=== PATIENT | female | born 1995 | race Caucasian/White ===

== ENCOUNTER 2017-02-15 18:47 | Outpatient (CLI) | payer OTHER ==
[~2017-02-15] VITALS: Ht 160 cm; Wt 101.0 kg
[2017-02-15 19:06] VITALS: BP 129/76; PULSE 85; RESP 19; Ht 160 cm; Wt 101.0 kg
[2017-02-15] MEDS ORDERED: ACETAMINOPHEN 500 MG TAB PO STA (20:46)
[2017-02-15 20:57] LABS: ADD UMIC YES; UR ASCORBIC ACID 20 mg/dL (NEGATIVE); UR BACTERIA FEW /HPF (NONE SEEN); UR BILIRUBIN (Dip) NEGATIVE (NEGATIVE); UR BLOOD (Dip) NEGATIVE (NEGATIVE); UR CLARITY CLOUDY (CLEAR); UR COLOR YELLOW (YELLOW); UR GLUCOSE (Dip) NEGATIVE (NEGATIVE); UR KETONES (Dip) TRACE mg/dL (NEGATIVE); UR LEUKOCYTE ESTERASE (Dip) 2+ Leu/ul (NEGATIVE); UR MUCUS FEW /HPF (NONE SEEN); UR NITRITE (Dip) NEGATIVE (NEGATIVE); UR RBC 3 /HPF (0-5); UR SPECIFIC GRAVITY (Dip) 1.033 (1.003-1.030); UR SQUAMOUS EPITHELIAL CELL MANY /HPF (FEW); UR TOTAL PROTEIN (Dip) 1+ mg/dl (NEGATIVE); UR UROBILINOGEN (Dip) NEGATIVE (NEGATIVE)
--- NOTE | 2017-02-15 22:19 | RADRPT ---
PROCEDURE: Biophysical profile. CLINICAL INDICATION: Pelvic pain. TECHNIQUE: Multiple sonographic images of the pelvis were obtained with transabdominal technique. COMPARISON: No prior studies are available for comparison. FINDINGS: There is a single living intrauterine gestation with the fetus in a vertex position. The placenta i s left lateral in location, grade II. heart tones of 131 beats per minute are identified. The re is normal amniotic fluid volume with an ANTONIO of 10.5 cm. breathing movements = 2 Gross body movements = 2 tone = 2 Qualitative AFV = 2 IMPRESSION: Biophysical profile 8 out of 8. .Alpesh Mora MD, MD Date Time Electronically viewed and signed by .Alpesh Mora MD, MD on 02/15/2017 22:18 .T/
--- NOTE | 2017-02-16 06:25 | TRIAGE ---
OB Triage Datetime Report Generated by CPN: 02/15/2017 23:16 Datetime: 02/15/2017 22:53 Labor Evaluation Frequency: X4 Monitor Mode: External Duration (sec)2399: 50-100 Quality: Mild Pattern: Normal: <= 5 Contractions in 10 Minutes Resting Tone [place]: Relaxed Heart Rate FHR Baseline Rate: 120 Monitor Mode: External US Variability: Moderate 6-25 bpm Accelerations: 15X15 Decelerations: None Category: Category I Pain Presence: None/Denies Datetime: 02/15/2017 22:48 Vaginal Exam Dilatation (cms): 2.0 Effacement (%): 70 Station: -2 Exam By: BE Vaginal Bleeding: None Cervix, Consistency: Soft Cervix, Position: Midposition Presentation 'A': Cephalic Datetime: 02/15/2017 22:00 Labor Evaluation Frequency: X2 Monitor Mode: External Duration (sec)2399: 60 Quality: Mild Pattern: Normal: <= 5 Contractions in 10 Minutes Resting Tone [place]: Relaxed Heart Rate FHR Baseline Rate: 120 Monitor Mode: External US FHR Baseline Changes: No Baseline Change Variability: Moderate 6-25 bpm Accelerations: 15X15 Decelerations: None Category: Category I Datetime: 02/15/2017 21:00 Labor Evaluation Frequency: X4 Monitor Mode: External Duration (sec)2399: 40-60 Quality: Mild Pattern: Normal: <= 5 Contractions in 10 Minutes Resting Tone [place]: Relaxed Heart Rate FHR Baseline Rate: 120 Monitor Mode: External US Variability: Moderate 6-25 bpm Accelerations: 15X15 Decelerations: None Category: Category I Pain Presence: None/Denies Pain Assessment Comments: PATIENT STATES THE PAIN IS ONLY WHEN SHE STANDS AND WALKS Datetime: 02/15/2017 20:04 Vaginal Exam Dilatation (cms): 2.0 Effacement (%): 70 Station: -2 Exam By: be Vaginal Bleeding: None Cervix, Consistency: Soft Cervix, Position: Posterior Presentation 'A': Cephalic Datetime: 02/15/2017 20:00 Labor Evaluation Frequency: X4 Monitor Mode: External Duration (sec)2399: 60-80 Quality: Mild Pattern: Normal: <= 5 Contractions in 10 Minutes Resting Tone [place]: Relaxed Heart Rate FHR Baseline Rate: 120 Monitor Mode: External US Variability: Moderate 6-25 bpm Accelerations: 15X15 Decelerations: None Category: Category I Datetime: 02/15/2017 19:09 EGA: 37.1 Datetime: 02/15/2017 19:07 Maternal Assessment Level of Consciousness: Fully Conscious DTR's/Clonus: DTRs 1+ Headache: Denies Blurred Vision: No Respiratory Effort: Unlabored Breath Sounds, Left: Clear and Equal Breath Sounds, Right: Clear and Equal Nausea/Vomiting: Denies RUQ Epigastric Pain: Denies Facial Edema: None Monitor Mode: External Pattern: Normal: <= 5 Contractions in 10 Minutes Heart Rate FHR Baseline Rate: 125 Monitor Mode: External US Variability: Moderate 6-25 bpm Accelerations: 15X15 Decelerations: None Category: Category I Pain Assessment Pain Scale: 6 Pain Presence: Constant Pain Type: Sharp Pain Goal: 3 Pain Assessment Comments: THIGH PAIN Membrane Status: Intact Datetime: 02/15/2017 19:00 Stage of : OB Triage Assessment Type: Triage Maternal Assessment Level of Consciousness: Fully Conscious DTR's/Clonus: DTRs 2+; No Clonus Headache: Denies Blurred Vision: No Respiratory Effort: Unlabored; Regular Rhythm; Equal Expansion Breath Sounds, Left: Clear and Equal Breath Sounds, Right: Clear and Equal Nausea/Vomiting: Denies RUQ Epigastric Pain: Denies Lower Extremities Edema: None Degree: None Upper Extremities Edema: None Degree: None Facial Edema: None Fall Risk Assessment History of Falling: (0) No Secondary Diagnosis: (0) No Ambulatory Aid: (0) Bedrest/Nurse Assist IV Therapy: (0) No Gait: (0) Normal/Bedrest/Immobile Mental Status: (0) Oriented to Own Ability Fall Score: 0 Fall Risk Score Definition: No Risk: No action required Pain Assessment Pain Scale: 8 (Annotations: WHEN PATIENT WALKS AND STANDS) Pain Presence: Constant Datetime: 02/15/2017 18:44 Time of Arrival: 02/15/2017 18:44 Arrived By: Ambulatory Arrived From: Home Chief Complaint: PT CAME IN C/O LOWER ABD PAIN AND INNER THIGH PAIN. STATES FEEL + MOVEMENT AND DENIES ANY BLEEDING OR ANY OTHER PROBLEM AT THIS TIME Movement: Present Contractions: Denies/Absent Rupture of Membranes: Denies Vaginal Discharge: Denies Recent Sexual Intercouse: Denies Abdominal Trauma: Not Applicable Time Provider Notified: 02/15/2017 20:10 Provider Notified: ERIK Initial Plan: MONITOR
--- NOTE | 2017-02-16 07:06 | PN ---
Triage Information Date/Time Reason for visit: lower abdominal and left inguinal region pain Weeks of Gestation 37+1 /Para 3/2 Diabetes: none Hypertention: none Additional information States pain bothers her with standing and walking x2 weeks. Has not tried any remedy at home. Reports normal FM, denies LOF, VB, UCs or dysuria. Objective Vital Signs Date Time Temp Pulse Resp B/P Pulse Ox O2 Delivery O2 Flow Rate FiO2 02/15/17 19:06 98.2 85 19 129/76 99 Room Air Heart Rate Comments baseline 110s, mod jane, +accels, no decels Contractions: 6-10 Minutes Apart Exam BLE symmetric, nontender, no calf TTP. Very mild TTP in L inguinal region. No palpable lymph nodes or hernia. No overlying erythema, no edema, no lesions overlying area. Normal sensation to touch. Able to adduct and abduct LLE. Able to ambulate SVE 270/-2 Results/Medications Results 24 hrs Laboratory Tests Test 02/15/17 20:20 Urine Color YELLOW Urine Clarity CLOUDY A Urine pH 5.0 Urine Specific [place] 1.033 H Urine Ketones TRACE A Urine Nitrite NEGATIVE Urine Bilirubin NEGATIVE Urine Urobilinogen NEGATIVE Urine Leukocyte Esterase 2+ H Urine Microscopic RBC 3 Urine Microscopic WBC 10 H Urine Squamous Epithelial Cells MANY A Urine Bacteria FEW A Urine Mucus FEW A Urine Hemoglobin NEGATIVE Urine Glucose NEGATIVE Urine Total Protein 1+ H Imaging Results PROCEDURE: Biophysical profile. CLINICAL INDICATION: Pelvic pain. TECHNIQUE: Multiple sonographic images of the pelvis were obtained with transabdominal technique. COMPARISON: No prior studies are available for comparison. FINDINGS: There is a single living intrauterine gestation with the fetus in a vertex position. The placenta is left lateral in location, grade II. heart tones of 131 beats per minute are identified. There is normal amniotic fluid volume with an ANTONIO of 10.5 cm. breathing movements = 2 Gross body movements = 2 tone = 2 Qualitative AFV = 2 IMPRESSION: Biophysical profile 8 out of 8. Disposition: Discharge Assessment/Plan Pt d/w Dr. Wilks by sales service coordinator and deemed appropriate for d/c home. Likely musculoskeletal etiology of pain. Recommend warm compress and Tylenol prn. Return to triage if pain does not improve and/or worsens. FWB reassuring. Reactive NST, BPP 02/03 No e/o labor FKC, Labor and ROM precautions reviewed. VIVI DENTON MD Feb 16, 2017 07:06
== END 2017-02-15 23:02 | disposition home or self-care (01) ==
LOC: OBT 18:47 → L-D 18:48 → OBT 23:02
PROVIDERS: ATTEND Obstetrics & Gynecology
DX: O26.893 Other specified pregnancy related conditions, third trimester (principal); Z3A.37 37 weeks gestation of pregnancy; R10.9 Unspecified abdominal pain
CPT/HCPCS: 76818; 81001; Z7500; Z7610; G0463

== ENCOUNTER 2017-03-01 14:14 | Inpatient (IN) | payer OTHER ==
[2017-03-01 14:33] VITALS: BP 123/73; PULSE 86; RESP 20
[2017-03-01] MEDS ORDERED: PRENAT PO (14:36)
--- NOTE | 2017-03-01 14:54 | TRIAGE ---
OB Triage Datetime Report Generated by CPN: 03/01/2017 14:54 Datetime: 03/01/2017 14:37 Vaginal Exam Dilatation (cms): 3.4 Effacement (%): 90 Station: -1 Exam By: [facility] Vaginal Bleeding: None Cervix, Position: Midposition Presentation 'A': Cephalic Datetime: 03/01/2017 14:26 Assessment Type: Triage Maternal Assessment Level of Consciousness: Fully Conscious DTR's/Clonus: DTRs 2+; No Clonus Headache: Denies Blurred Vision: No Respiratory Effort: Unlabored; Regular Rhythm; Equal Expansion Breath Sounds, Left: Clear and Equal Breath Sounds, Right: Clear and Equal Nausea/Vomiting: Denies RUQ Epigastric Pain: Denies Facial Edema: None Fall Risk Assessment History of Falling: (0) No Secondary Diagnosis: (0) No Ambulatory Aid: (0) Bedrest/Nurse Assist IV Therapy: (0) No Gait: (0) Normal/Bedrest/Immobile Mental Status: (0) Oriented to Own Ability Fall Score: 0 Fall Risk Score Definition: No Risk: No action required Datetime: 02/15/2017 19:09 Time of Arrival: 03/01/2017 14:10 EGA: 39.1 Arrived By: Ambulatory Arrived From: Home Chief Complaint: rom at 10 am Movement: Present Contractions: Irregular Rupture of Membranes: Ruptured Vaginal Bleeding: Scant Recent Sexual Intercouse: Denies Abdominal Trauma: Not Applicable Patient Complaints: Contractions; Other Time Provider Notified: 03/01/2017 14:53 Provider Notified: delshad Datetime: 02/15/2017 19:00 Fall Score: 0 Fall Risk Score Definition: No Risk: No action required
[2017-03-01] MEDS ORDERED: CARBOPROST 250 MCG INJ IM PRN ×2 (15:30→19:30)
[2017-03-01] MEDS ORDERED: MISOPROSTOL 200 MCG TAB PR PRN ×2 (15:30→19:30)
[2017-03-01] MEDS ORDERED: METHYLERGONOVINE 0.2 MG INJ IM PRN ×2 (15:30→19:30)
[2017-03-01] MEDS ORDERED: LACTATED RINGER'S 1,000 ML IV PRN (15:30)
[2017-03-01] MEDS ORDERED: LIDOCAINE 1% (MPF) 30 ML INJ INJ PRN (15:30)
[2017-03-01] MEDS ORDERED: OXYTOCIN 30 UNITS/LR 500 ML IV PRN ×2 (15:30→19:30)
[2017-03-01] MEDS ORDERED: IBUPROFEN 600 MG TAB PO PRN (15:30)
[2017-03-01] MEDS ORDERED: OXYTOCIN 30 UNITS/LR 500 ML IV SCH ×3 (15:30→19:30)
[2017-03-01] MEDS ORDERED: BUTORPHANOL 2 MG INJ IV PRN (15:30)
[2017-03-01 15:42] LABS: BASOPHILS % 0.3 % (0.0-2.0); EOSINOPHILS # 0.1 10^3/ul (0.0-0.5); EOSINOPHILS % 0.7 % (0.0-7.0); HEMATOCRIT 32.8 % (37.0-47.0); HEMOGLOBIN 10.9 g/dl (12.0-16.0); LYMPHOCYTES # 3.4 10^3/ul (0.8-2.9); LYMPHOCYTES % 30.1 % (15.0-51.0); MEAN CORPUSCULAR HEMOGLOBIN 27.3 pg (29.0-33.0); MEAN CORPUSCULAR HGB CONC 33.2 g/dl (32.0-37.0); MEAN PLATELET VOLUME 11.2 fl (7.4-10.4); MONOCYTE # 1.1 10^3/ul (0.3-0.9); MONOCYTES % 10.2 % (0.0-11.0); NEUTROPHILS % 58.3 % (39.0-77.0); PLATELET COUNT 291 10^3/UL (140-415); RED CELL DISTRIBUTION WIDTH 16.1 % (11.5-14.5); WHITE BLOOD COUNT 11.2 10^3/ul (4.8-10.8)
[2017-03-01 16:20] LABS: INR 0.84; PROTIME 11.5 Sec (12.2-14.2); PT RATIO 0.9
[2017-03-01 16:21] LABS: PARTIAL THROMBOPLASTIN TIME 25.2 Sec (25.0-35.0)
--- NOTE | 2017-03-01 16:42 | RADRPT ---
PROCEDURE: US OB. CLINICAL INDICATION: Labor. TECHNIQUE: Multiple sonographic images of the pelvis were obtained. Transabdominal imaging only w as performed. The images were reviewed on a PACS workstation. COMPARISON: No prior studies are available for comparison. FINDINGS: There is a single living intrauterine gestation in cephalic position. There is an posterior placenta. There is no evidence of previa. Adequate amnionic fluid is demonstrated. The amniotic fluid index is 8.0 cm. Active cardiac motion is seen in a four-chambered heart at 132 beats per minute. The biparietal diameter is 9.5 cm. The head circumference is 33.74 cm. The abdominal circumference is 33.13 cm. The femur length is 7.3 cm . Consistent with: A 23-oxmn-9-day gestation. Estimated weight is 3228 plus or minus 484 g. IMPRESSION: 1. Single living intrauterine gestation in cephalic position with a mean gestational age by ultraso und of 38 weeks 0 days plus or minus 19 days with estimated date of delivery of 03/15/2017 by ultras ound criteria. RPTAT: [facility] Physician Ratna Date Time Electronically viewed and signed by Physician Ratna on 03/01/2017 16:42 /
[2017-03-01] MEDS: LACTATED RINGER'S 1,000 ML IV SCH ×2 (17:56→18:52)
[2017-03-01] MEDS ORDERED: LACTATED RINGER'S 1,000 ML IV* SCH (19:08)
--- NOTE | 2017-03-01 19:08 | LDN ---
Date/Time of Note Date/Time of Note DATE: 03/01/17 TIME: 18:59 Delivery Summary Pt pushed without anesthesia to an of a liveborn 3505g female with Apgars of 9 and 9 at 1 and 5 min respectively. Easy delivery of the head from SHARMIN position. A loose nuchal cord x1 was reduced followed by delivery of the anterior shoulder, posterior shoulder and the remainder of the body. vigorous at delivery. Cord clamping was delayed x30 seconds and the infant was bulb suctioned. Standard IV Pitocin was administered. The cord was then doubly clamped and cut by FOB. Cord blood was collected. An intact 3VC placenta then spontaneously delivered shortly thereafter. Fundal massage revealed a firm fundus. Inspection of the vagina and perineum revealed a small second degree laceration which was repaired with local anesthetic using 3-0 Vicryl suture. Brisk vaginal bleeding was noted and with fundal massage, additional bleeding was seen. A bimanual exam was notable for clots in the MARVIN which were removed however bleeding continued. Pt received Methergine 200mcg IM x1 and bimanual massage was employed with minimal effect. Ring forceps were then used to examine the cervix and a posterior cervical laceration was noted. Given the patient's extreme discomfort, an epidural was placed for repair of the cervical laceration. The cervix was repaired using 0-Chromic suture in a continuous fashion. Appropriate hemostasis was then noted. EBL 400ml. Rectal exam performed at the end of the procedure revealed intact rectal mucosa without defects and no suture palpated in the rectum. Placenta Delivered: Spontaneously Meconium: none Perineal laceration: 2 Anesthesia type: Local (for perineal repair, epidural for cervical laceration repair) Estimated blood loss: 400 Sponge & Needle done & correct: Yes Any foreign bodies felt in the: No Problems: Delivery Information Sex Sex: female Apgars 1 Minute: 9 5 Minute: 9 Suctioning Nose & mouth suctioned at nhung: No (suctioned after delivery of the infant) Delee suction performed: No Umbilical Cord Umbilical cord with: 3 Vessels Cord presentations: nuchal cord Nuchal cord present X: 1 Cord Blood was obtained: Yes Mother & Baby Disposition Disposition Mom & Baby to Maternity; Good: Yes VIVI DENTON MD Mar 01, 2017 19:08
[2017-03-01] MEDS ORDERED: FENTAnyl 2MCG/ML-ROPIV 0.2% 100 ML ONE (19:18)
[2017-03-01] MEDS ORDERED: SENNA/DOCUSATE NA (8.6MG/50MG) TAB PO PRN (19:30)
[2017-03-01] MEDS ORDERED: DIPHENHYDRAMINE 50 MG INJ IV PRN (19:30)
[2017-03-01] MEDS ORDERED: ONDANSETRON 4 MG INJ IV PRN (19:30)
[2017-03-01] MEDS ORDERED: DIBUCAINE 1% 30 GM OINT PR PRN (19:30)
[2017-03-01] MEDS ORDERED: BENZOCAINE 20% 56 ML SPRAY TOP PRN (19:30)
[2017-03-01] MEDS ORDERED: LANOLIN 7 GM TUBE TOP PRN (19:30)
[2017-03-01] MEDS ORDERED: ACETAMINOPHEN 325 MG TAB PO PRN (19:30)
[2017-03-01 22:35] VITALS: BP 138/79; PULSE 66; RESP 19
[2017-03-01] MEDS ORDERED: NALOXONE (0.4 MG/ML) INJ IV PRN (23:00)
[2017-03-01] MEDS ORDERED: FENTAnyl 2MCG/ML-ROPIV 0.2% 100 ML BAG EPI SCH (23:00)
[2017-03-02] MEDS: IBUPROFEN 600 MG TAB PO SCH ×5 (00:59→23:34)
[2017-03-02 04:15] VITALS: BP 132/74; PULSE 83; RESP 19
[2017-03-02 07:51] LABS: BASOPHILS % 0.2 % (0.0-2.0); EOSINOPHILS # 0.1 10^3/ul (0.0-0.5); EOSINOPHILS % 0.5 % (0.0-7.0); HEMATOCRIT 26.7 % (37.0-47.0); HEMOGLOBIN 8.6 g/dl (12.0-16.0); LYMPHOCYTES # 3.3 10^3/ul (0.8-2.9); MEAN CORPUSCULAR HEMOGLOBIN 26.5 pg (29.0-33.0); MEAN CORPUSCULAR HGB CONC 32.2 g/dl (32.0-37.0); MEAN CORPUSCULAR VOLUME 82.4 fl (82.0-101.0); MEAN PLATELET VOLUME 11.7 fl (7.4-10.4); MONOCYTE # 1.1 10^3/ul (0.3-0.9); MONOCYTES % 9.5 % (0.0-11.0); NEUTROPHILS % 61.4 % (39.0-77.0); PLATELET COUNT 222 10^3/UL (140-415); RED BLOOD COUNT 3.24 10^6/ul (4.20-5.40); WHITE BLOOD COUNT 11.7 10^3/ul (4.8-10.8)
[2017-03-02 08:00] VITALS: BP 127/71; PULSE 83; RESP 16
[2017-03-02 12:00] VITALS: BP 125/79; PULSE 82; RESP 18
[2017-03-02 16:00] VITALS: BP 126/75; PULSE 78; RESP 16
--- NOTE | 2017-03-02 18:39 | HP ---
Date/Time of Note Date/Time of Note DATE: 03/02/17 TIME: 18:35 OB - History Hx of Present Chief Complaint: contractions Estimated Due Date: Mar 07, 2017 : 3 Para: 2 Spontaneous : 0 Therapeutic : 0 Care: Limited Care Obstetrical Complications: None Medical Complications: None Past Family/Social History * Past Medical, Surgical, Family and Obstetric Histories reviewed from chart. GBS Status: Negative OB Admission Exam Vital Signs Vital Signs Vital Signs Date Time Temp Pulse Resp B/P Pulse Ox O2 Delivery O2 Flow Rate FiO2 03/02/17 16:00 98.1 78 16 126/75 Room Air Physical Exam HEENT: WNL Heart: Rhythm Normal Lungs: Clear, Equal Abdomen: WNL Extremities: Normal Reflexes: Normal Cervical Dilatation: 4cm Effacement: 100% Station: -1 Membranes: Ruptured Amniotic Fluid: Clear Heart Rate: 120's Accelerations: Accelerations Present Decelerations: No Decelerations Varibility: Moderate Last 72 hours Lab Results CBC & BMP 03/01/17 15:15 03/02/17 07:01 OB Assessment/Plan Reason for admission: active labor Plan: Expectant Management RENEE VALENCIA MD Mar 02, 2017 18:39
--- NOTE | 2017-03-02 18:41 | QN ---
Documentation Comment No complaint Afebrile VSS Fundus Firm Lochia scant PPD #1 Stable Routine pp care. RENEE VALENCIA MD Mar 02, 2017 18:41
[2017-03-02 19:40] VITALS: BP 127/82; PULSE 82; RESP 19
[2017-03-02] MEDS: FERROUS SULFATE (EC) 325 MG TAB PO SCH (21:49)
[2017-03-03 05:05] VITALS: BP 121/67; PULSE 79; RESP 19
[2017-03-03] MEDS: IBUPROFEN 600 MG TAB PO SCH ×2 (05:40→12:18)
[2017-03-03 08:00] VITALS: BP 112/63; PULSE 76; RESP 16
[2017-03-03] MEDS ORDERED: DIPHTH/TET/ACEL PERTUSS (ADULT) 0.5 ML VIAL IM* ONE (09:00)
[2017-03-03] MEDS: FERROUS SULFATE (EC) 325 MG TAB PO SCH ×2 (09:43→12:18)
--- NOTE | 2017-03-03 12:25 | DS ---
Date/Time of Note Date/Time of Note DATE: 03/03/17 TIME: 12:25 Obstetrical Discharge Record Final Diagnosis Final Diagnosis: Term delivered Vaginal Delivery Obstetrical Delivery: Spontaneous Condition on Discharge Physical Assessment Voiding: Yes Bowel Movement: Yes Breast: Soft, non-tender Fundus: Firm Calf Tenderness: No Patient Condition: Stable RENEE VALENCIA MD Mar 03, 2017 12:25
== END 2017-03-03 16:01 | disposition home or self-care (01) | DRG 775 ==
LOC: OBT 14:14 → L-D 14:16 → OBT 14:50 → L-D 14:50 → PP1 22:23
PROVIDERS: ADMIT Obstetrics & Gynecology; ATTEND Obstetrics & Gynecology
PROC: 0UQC7ZZ Repair Cervix, Via Natural or Artificial Opening (ICD-10-PCS; principal; 2017-03-01)
PROC: 10E0XZZ Delivery of Products of Conception, External Approach (ICD-10-PCS; 2017-03-01)
DX: O71.3 Obstetric laceration of cervix (principal); Z37.0 Single live birth; O69.81X0 Labor and delivery complicated by cord around neck, without compression, not applicable or unspecified; Z3A.39 39 weeks gestation of pregnancy
CPT/HCPCS: 62319; 76815; 85025; 85610; 85730; 86592; 86900; 86901; 87340; 90715; A4310; G0463; J0595; J2210; J2590; J3010; J7120

== ENCOUNTER 2017-03-12 20:25 | Emergency (ER) | payer OTHER ==
[~2017-03-12] VITALS: Ht 160 cm; Wt 93.0 kg
[~2017-03-12 20:25] MED LIST: PRENAT PO
[2017-03-12 20:29] VITALS: Ht 160 cm; Wt 93.0 kg
[2017-03-12 21:02] LABS: URINE BLOOD (Dip) POC 2+ (NEGATIVE)
[2017-03-12] MEDS ORDERED: SOD CHLORIDE 0.9% 1,000 ML IV STA (21:20)
--- NOTE | 2017-03-12 21:22 | ERD ---
ER Documentation Chief Complaint Date/Time DATE: 03/12/17 TIME: 21:22 Chief Complaint fever x 1 week; denies body pains HPI 22-year-old female status post term vaginal delivery 03/01/17 ambulatory to the ED for evaluation of fever. Several days ago had a subjective fever which resolved after 1 day but recurred today. She is otherwise completely asymptomatic. Denies URI symptoms, rhinorrhea or odynophagia. No headache or neck pain. No shortness of breath or cough. Denies abdominal pain, nausea, vomiting, diarrhea or constipation. No dysuria, polyuria, hematuria or flank pain. No leg pain or swelling. No skin rash. No ill contacts or recent travel. ROS All systems reviewed and are negative except as per history of present illness. Medications Home Meds Active Scripts Ciprofloxacin Hcl* (Ciprofloxacin Hcl*) 500 Mg Tablet, 500 MG PO BID for 7 Days , TAB Prov:SO KARIMI MD 03/12/17 Reported Medications Multivit/Min/Fol Ac/Iron/Pren* ( S*) 1 Tab Tab, 1 TAB PO DAILY, TAB 03/01/17 Allergies Allergies: Coded Allergies: No Known Allergies (Verified Allergy, Unknown, 03/01/17) No Known Drug Allergies (Verified Allergy, Unknown, 02/15/17) PMhx/Soc History of Surgery: No Anesthesia Reaction: No Hx Neurological Disorder: No Hx Respiratory Disorders: No Hx Cardiac Disorders: No Hx Psychiatric Problems: No Hx Miscellaneous Medical Probl: No Hx Alcohol Use: No Hx Substance Use: No Hx Tobacco Use: No FmHx No stroke or cancer Physical Exam Vitals Vital Signs Date Time Temp Pulse Resp B/P Pulse Ox O2 Delivery O2 Flow Rate FiO2 03/13/17 00:00 99.4 94 18 103/64 97 Room Air 03/12/17 22:40 102.2 03/12/17 21:10 104.2 122 22 108/62 97 Room Air 03/12/17 20:29 105.5 150 25 151/80 100 Physical Exam Const: Alert, NAD Head: Atraumatic Eyes: Normal Conjunctiva ENT: Normal External Ears, Nose and Mouth. Pharynx clear. No erythema or exudate. Neck: Full range of motion. No adenopathy or tenderness. No meningismus. Resp: Clear to auscultation bilaterally Cardio: Tachycardic. Regular rate and rhythm, no murmurs Abd: Soft, non tender, non distended. Normal bowel sounds. No rebound or guarding. Pelvid deferred as per patient. Skin: No petechiae or rashes Back: No midline or flank tenderness Ext: No cyanosis, or edema Neur: Awake and alert Psych: Normal Mood and Affect Result Diagram: 03/12/17210903/12/172109 Results 24 hrs Laboratory Tests Test 03/12/17 21:05 03/12/17 21:09 03/12/17 21:10 Urine Color YELLOW Urine Clarity SLIGHTLY CLOUDY Urine pH 5.0 Urine Specific [place] 1.015 Urine Ketones NEGATIVEmg/dL Urine Nitrite NEGATIVEmg/dL Urine Bilirubin NEGATIVEmg/dL Urine Urobilinogen NEGATIVEmg/dL Urine Leukocyte Esterase 2+Yareli/ul Urine Microscopic RBC 6/HPF Urine Microscopic WBC 30/HPF Urine Hemoglobin 3+mg/dL Urine Glucose NEGATIVEmg/dL Urine Total Protein 1+mg/dl Bedside Urine pH (LAB) 5.5 Bedside Urine Protein (LAB) 1+ Bedside Urine Glucose (UA) Negative Bedside Urine Ketones (LAB) Negative Bedside Urine Blood 2+ Bedside Urine Nitrite (LAB) Negative Bedside Urine Leukocyte Esterase (L 1+ White Blood Count 12.010^3/ul Red Blood Count 4.0310^6/ul Hemoglobin 10.7g/dl Hematocrit 33.6% Mean Corpuscular Volume 83.4fl Mean Corpuscular Hemoglobin 26.6pg Mean Corpuscular Hemoglobin Concent 31.8g/dl Red Cell Distribution Width 16.5% Platelet Count 51021^3/UL Mean Platelet Volume 9.9fl Neutrophils % 79.9% Lymphocytes % 13.2% Monocytes % 5.2% Eosinophils % 0.5% Basophils % 0.3% Nucleated Red Blood Cells % 0.0/100WBC Neutrophils # 9.610^3/ul Lymphocytes # 1.610^3/ul Monocytes # 0.610^3/ul Eosinophils # 0.110^3/ul Basophils # 0.010^3/ul Nucleated Red Blood Cells # 0.010^3/ul Sodium Level 138mmol/L Potassium Level 3.7mmol/L Chloride Level 105mmol/L Carbon Dioxide Level 24mmol/L Anion Gap 13 Blood Urea Nitrogen 11mg/dl Creatinine 1.00mg/dl Glucose Level 92mg/dl Calcium Level 9.7mg/dl Current Medications Medications (Trade) Dose Ordered Sig/Ari Route PRN Reason Start Time Stop Time Status Last Admin Dose Admin Sodium Chloride (NS) 1,000 ml @ 1,000 mls/hr Q1H STAT IV 03/12/17 21:20 03/12/17 22:19 DC 03/12/17 21:34 Ibuprofen 600 mg 600 mg ONCE ONCE PO 03/12/17 21:30 03/12/17 21:31 DC 03/12/17 21:33 Ceftriaxone Sodium (Rocephin) 50 ml @ 100 mls/hr ONCE ONCE IVPB 03/12/17 23:00 03/12/17 23:29 DC 03/12/17 22:54 Procedures/MDM DOCUMENTS REVIEWED: ED nurse, prior records including L&D notes from 03/01/2017 MEDICAL DECISION MAKIN-year-old female status post term vaginal delivery 03/01/17 ambulatory to the ED for evaluation of fever. Asymptomatic pyuria but no flank pain or signs of pyelonephritis. No vaginal discharge lower abdominal pain or other signs of endometritis. No headache, meningismus or signs of meningitis or encephalitis. Abdominal exam is completely benign without rebound , guarding or signs of peritonitis. No endometritis. No risk factors of endocarditis or HIV. Fever likely a viral etiology although no symptoms of URI. Ciprofloxacin for urinary tract infection will be initiated pending culture. Stable for discharge with fever instructions and outpatient follow-up as counseled. Patient understands that the etiology of her symptoms are not established. Needs to return to the ED if symptoms worsen or mandatory follow- up with primary care physician within 1 or 2 days. Counseled [patient and family] regarding diagnostic workup, diagnosis and need for followup. Understands to return to ED if symptoms recur, worsen or any other concerns. Departure Diagnosis: Primary Impression: Fever Fever type: unspecified Qualified Code: R50.9 - Fever, unspecified fever cause Additional Impression: Urinary tract infection Urinary tract infection type: site unspecified Hematuria presence: without hematuria Qualified Code: N39.0 - Urinary tract infection without hematuria, site unspecified Condition: Stable (Improved) SO KARIMI MD Mar 12, 2017 21:22
[2017-03-12] MEDS ORDERED: IBUPROFEN 600 MG TAB PO ONE (21:30)
[2017-03-12 21:48] LABS: BASOPHILS % 0.3 % (0.0-2.0); EOSINOPHILS # 0.1 10^3/ul (0.0-0.5); EOSINOPHILS % 0.5 % (0.0-7.0); HEMATOCRIT 33.6 % (37.0-47.0); HEMOGLOBIN 10.7 g/dl (12.0-16.0); LYMPHOCYTES # 1.6 10^3/ul (0.8-2.9); LYMPHOCYTES % 13.2 % (15.0-51.0); MEAN CORPUSCULAR HEMOGLOBIN 26.6 pg (29.0-33.0); MEAN CORPUSCULAR HGB CONC 31.8 g/dl (32.0-37.0); MEAN CORPUSCULAR VOLUME 83.4 fl (82.0-101.0); MEAN PLATELET VOLUME 9.9 fl (7.4-10.4); MONOCYTE # 0.6 10^3/ul (0.3-0.9); MONOCYTES % 5.2 % (0.0-11.0); NEUTROPHIL # 9.6 10^3/ul (1.6-7.5); NEUTROPHILS % 79.9 % (39.0-77.0); PLATELET COUNT 452 10^3/UL (140-415); RED BLOOD COUNT 4.03 10^6/ul (4.20-5.40); RED CELL DISTRIBUTION WIDTH 16.5 % (11.5-14.5)
[2017-03-12 21:50] LABS: ADD UMIC YES; UR ASCORBIC ACID NEGATIVE (NEGATIVE); UR BILIRUBIN (Dip) NEGATIVE (NEGATIVE); UR BLOOD (Dip) 3+ mg/dL (NEGATIVE); UR CLARITY SLIGHTLY CLOUDY (CLEAR); UR COLOR YELLOW (YELLOW); UR GLUCOSE (Dip) NEGATIVE (NEGATIVE); UR KETONES (Dip) NEGATIVE (NEGATIVE); UR LEUKOCYTE ESTERASE (Dip) 2+ Leu/ul (NEGATIVE); UR NITRITE (Dip) NEGATIVE (NEGATIVE); UR RBC 6 /HPF (0-5); UR SPECIFIC GRAVITY (Dip) 1.015 (1.003-1.030); UR TOTAL PROTEIN (Dip) 1+ mg/dl (NEGATIVE); UR UROBILINOGEN (Dip) NEGATIVE (NEGATIVE)
[2017-03-12 22:12] LABS: CALCIUM 9.7 mg/dl (8.4-10.2); POTASSIUM 3.7 mmol/L (3.5-5.1)
--- NOTE | 2017-03-12 22:15 | RADRPT ---
PROCEDURE: XR Chest. CLINICAL INDICATION: Fever. TECHNIQUE: Single frontal view of the chest. COMPARISON: None. FINDINGS: The cardiomediastinal silhouette is within normal limits. The lungs are clear. No signs of pleural f luid or pneumothorax are seen. The osseous structures and soft tissues are unremarkable. IMPRESSION: No evidence for active cardiopulmonary disease. RPTAT: [facility] Physician Alexandro Date Time Electronically viewed and signed by Physician Alexandro on 03/12/2017 22:14 RS/
[2017-03-12] MEDS ORDERED: CIPR500T4 PO (22:42)
[2017-03-12] MEDS ORDERED: CEFTRIAXONE 1 GM/50 ML (PMX) 50 ML IVPB ONE (23:00)
[2017-03-13] VITALS: BP 103/64; PULSE 94; RESP 18; TEMP 99.4
== END 2017-03-13 | disposition home or self-care (01) ==
LOC: E/R 20:25
DX: O86.4 Pyrexia of unknown origin following delivery (principal); O86.20 Urinary tract infection following delivery, unspecified; R40.2142 Coma scale, eyes open, spontaneous, at arrival to emergency department; R40.2252 Coma scale, best verbal response, oriented, at arrival to emergency department; R40.2362 Coma scale, best motor response, obeys commands, at arrival to emergency department; B96.89 Other specified bacterial agents as the cause of diseases classified elsewhere
CPT/HCPCS: 36415; 71010; 80048; 81001; 85025; 96374; J0696; J7030; Z7502; Z7610; 81003